=== PATIENT | male | born 1950 | race Caucasian/White ===

== ENCOUNTER 2017-09-11 11:12 | Day surgery (SDC) | payer MEDICARE, OTHER ==
[2017-09-07 14:41] LABS: BASOPHILS % (AUTO) 0.8 % (0-1); EOSINOPHILS # (AUTO) 0.1 X10'3 (0-0.9); EOSINOPHILS % (AUTO) 1.6 % (0-6); LYMPHOCYTES # (AUTO) 1.9 X10'3 (1.1-4.8); LYMPHOCYTES % (AUTO) 31.1 % (21-51); MEAN CORPUSCULAR HEMOGLOBIN 32.4 PG (27.0-31.0); MEAN CORPUSCULAR HGB CONC 34.9 % (33.0-36.5); MEAN CORPUSCULAR VOLUME 92.7 FL (78-98); MEAN PLATELET VOLUME 8.7 FL (7.4-10.4); MONOCYTES # (AUTO) 0.5 X10'3 (0-0.9); MONOCYTES % (AUTO) 7.4 % (2-12); NEUTROPHILS # (AUTO) 3.7 X10'3 (1.8-7.7); NEUTROPHILS % (AUTO) 59.1 % (42-75); PRE OP HEMATOCRIT 43.4 % (42.0-52.0); PRE OP HEMOGLOBIN 15.2 g/dL (14.0-17.9); PRE OP PLATELET COUNT 214 X10'3 (140-440); RED BLOOD COUNT 4.68 X10'6 (4.70-6.10); RED CELL DISTRIBUTION WIDTH 13.1 % (11.5-14.5)
[2017-09-07 14:42] LABS: CLARITY,URINE CLEAR (Clear); COLOR,URINE YELLOW (Yellow); GLUCOSE, URINE NEGATIVE (Neg); KETONES,URINE NEGATIVE (Neg); LEUKOCYTE ESTERASE ,URINE NEGATIVE (Neg); NITRITES, URINE NEGATIVE (Neg); OCCULT BLOOD,URINE NEGATIVE (Neg); PH,URINE 5.5 (4.8-8.0); PROTEIN,URINE NEGATIVE (Neg); UROBILINOGEN,URINE 0.2 E.U/dL (0.2-1.0)
[2017-09-07 14:50] LABS: UA COLLECTION TYPE NON-SPECIFIED
[2017-09-07 14:55] LABS: ALBUMIN 3.9 G/DL (3.4-5.0); ALBUMIN/GLOBULIN RATIO 1.1 (1.1-1.5); ALKALINE PHOSPHATASE 49 IU/L (46-116); BLOOD UREA NITROGEN 13 MG/DL (7-18); BUN/CREATININE RATIO 10.5 (5.4-32.0); CALCIUM 9.1 MG/DL (8.5-10.1); CHLORIDE 105 MMOL/L (99-107); CREATININE 1.24 MG/DL (0.60-1.10); PRE OP ALT 39 U/L (30-65); PRE OP ANION GAP 11 (8-16); PRE OP AST 26 U/L (10-37); PRE OP BILIRUB, TOTAL 0.4 MG/DL (0.0-1.0); PRE OP GLUCOSE 92 MG/DL (70-104); PRE OP POTASSIUM 3.8 MMOL/L (3.4-5.1); PRE OP SODIUM 144 MMOL/L (135-145); TOTAL CARBON DIOXIDE 27.9 MMOL/L (24-32); TOTAL PROTEIN 7.4 G/DL (6.4-8.2); eGFR 58 ML/MIN
[~2017-09-11] VITALS: Ht 180.3 cm; Wt 86.1 kg
[2017-09-11] VITALS (9 sets, daily range): BP systolic 122–152; BP diastolic 78–90
[~2017-09-11 11:12] MED LIST: ATOR10TA70; Cefazolin 2GM/100ML NS IVPB IV ONE; FOLI1TAB16; SULF500T9; famotidine 20mg tablet PO ONE; ringers solution, lacted 1,000 ML IV SCH
[2017-09-11] MEDS ORDERED: LIDOcaine 1% (10mg/ml) 2ml vial ONE (11:44)
[2017-09-11] MEDS ORDERED: ceFAZolin 1000mg inj ONE (12:43)
[2017-09-11] MEDS ORDERED: BUPIVAcaine/PF 2.5 mg/ml (0.25%) 30ml vial ONE (12:43)
[2017-09-11] MEDS ORDERED: sevoflurane 250ml liquid IH ONE (12:56)
[2017-09-11] MEDS ORDERED: midazolam 2 mg/2 ml injection ONE (12:58)
[2017-09-11] MEDS ORDERED: fentaNYL/PF 50MCG/1 ML 2ML syringe ONE ×2 (12:58→13:27)
[2017-09-11] MEDS ORDERED: ringers solution, lacted 1,000 ML IV SCH (13:44)
[2017-09-11] MEDS ORDERED: morphine 4 MG/ML inj SYRINge IV PRN ×2 (13:45)
[2017-09-11] MEDS ORDERED: ondansetron/PF 4mg/2ml inj IV PRN (13:45)
[2017-09-11] MEDS ORDERED: proCHLORperazine 10 MG/2 ml inj IV PRN (13:45)
[2017-09-11] MEDS ORDERED: meperidine/PF 50mg/ml syringe IV PRN ×3 (13:45)
[2017-09-11] MEDS ORDERED: dexamethasone sod phosphate 4mg/ml inj. ONE (13:46)
[2017-09-11] MEDS ORDERED: propofol inj 20 ML IV ONE (13:46)
[2017-09-11] MEDS ORDERED: LIDOcaine 2% (20mg/ml) 5ml vial ONE (13:46)
[2017-09-11] MEDS ORDERED: ondansetron/PF 4mg/2ml inj ONE (13:46)
[2017-09-11] MEDS ORDERED: HYDROcodone/acetaminophen 10/325mg tab PO ONE (15:15)
== END 2017-09-11 16:15 | disposition home or self-care (01) ==
LOC: PAS 11:12
PROVIDERS: ATTEND Surgery
DX: K40.90 Unilateral inguinal hernia, without obstruction or gangrene, not specified as recurrent (principal); D17.6 Benign lipomatous neoplasm of spermatic cord; E78.5 Hyperlipidemia, unspecified; M19.90 Unspecified osteoarthritis, unspecified site; R94.39 Abnormal result of other cardiovascular function study; Z96.651 Presence of right artificial knee joint; Z96.642 Presence of left artificial hip joint; Z87.891 Personal history of nicotine dependence; Z72.89 Other problems related to lifestyle; Z98.890 Other specified postprocedural states; Z79.899 Other long term (current) drug therapy
CPT/HCPCS: 36415; 49505; 80053; 81003; 85025; 93005; A6449; C1781; J0690; J1100; J2001; J2250; J2405; J2704; J3010; J3490; J7120; 88304; A7000